=== PATIENT | female | born 1980 | race African-American/Black ===

== ENCOUNTER 2021-08-28 20:46 | Emergency (ER) | payer SELFPAY ==
[2021-08-28] MEDS ORDERED: Sodium Chloride 0.9% 10 ML Syringe FLUSH PRN (21:03)
[2021-08-28] MEDS ORDERED: Morphine 2 MG/ML SYRINGE IVPUSH ONE (21:09)
[2021-08-28] MEDS ORDERED: Ondansetron 4 MG/2 ML SDV IVPUSH ONE (21:09)
[2021-08-28] MEDS ORDERED: HYDROmorphone 0.5 MG/0.5 ML Syringe IVPUSH ONE ×2 (21:15→21:33)
[2021-08-28] MEDS ORDERED: Sodium Chloride 0.9% 1,000 ML IV ONE (21:41)
[2021-08-28] MEDS ORDERED: Iopamidol 612 MG/ML 100 ML Bottle IVPUSH ONE (21:44)
[2021-08-28 21:48] LABS: CHLORIDE,CL 103 mmol/L (98-107); SODIUM,NA 138 mmol/L (136-145)
[2021-08-28 21:51] LABS: ANION GAP 20.3 mmol/L (5-15); ESTIMATED GFR 64 mL/min (>=60)
[2021-08-29] MEDS ORDERED: cefTRIAXone 1 GM Vial IVPUSH ONE (00:49)
[2021-08-29] MEDS ORDERED: Take Home: Acetaminophen/HYDROcodone 325-5 MG, 5 Tab Pack PO ONE (00:53)
== END 2021-08-29 01:20 | disposition home or self-care (01) ==
LOC: VM.ED 20:46
DX: K76.89 Other specified diseases of liver (principal); R11.2 Nausea with vomiting, unspecified; Z88.5 Allergy status to narcotic agent
CPT/HCPCS: 36415; 74177; 80053; 82150; 82550; 83690; 84484; 85025; 85610; 93005; 96361; 96374; 96375; 96376; 99284; A9270; J0696; J1170; J2405; J7030